=== PATIENT | female | born 1955 ===

== ENCOUNTER 2017-05-27 22:06 | Emergency (ER) | payer MEDICARE, MEDICAID ==
[2017-05-27 22:13] VITALS: TEMP 98
[2017-05-27] MEDS ORDERED: Sodium Chloride 0.9% 1,000 ML IV STA ×2 (22:24→23:57)
[2017-05-27 22:42] LABS: BASO % 0.5 % (0.0-2.0); EOS # 0.1 K/uL (0.0-0.7); EOS % 0.5 % (0.0-4.0); HEMOGLOBIN 12.1 g/dL (12.0-16.0); LYMPH # 1.1 K/uL (1.0-4.3); LYMPH % 11.2 % (20.0-40.0); MEAN CELL VOLUME 88.8 fl (81.0-99.0); MEAN CORPUSCULAR HEMOGLOBIN 28.3 pg (27.0-31.0); MEAN CORPUSCULAR HGB CONC 31.9 g/dL (33.0-37.0); MEAN PLATELET VOLUME 11.5 fl (7.2-11.7); MONO # 0.7 K/uL (0.0-0.8); MONO % 6.7 % (0.0-10.0); NEUT # 8.3 K/uL (1.8-7.0); NEUT % 81.1 % (50.0-75.0); NRBC % 0.1 % (0.0-0.0); RBC 4.29 Mil/uL (3.80-5.20); RED CELL DISTRIBUTION WIDTH 14.7 % (11.5-14.5); WHITE BLOOD COUNT 10.2 K/uL (4.8-10.8)
[2017-05-27 22:54] LABS: ALBUMIN 4.2 g/dL (3.5-5.0); ALT/SGPT 77 U/L (9-52); AST/SGOT 75 U/L (14-36); BLOOD UREA NITROGEN 24 mg/dl (7-17); CALCIUM 9.3 mg/dL (8.4-10.2); GFR AFRICAN-AMERICAN > 60; GFR NON-AFRICAN AMERICAN > 60; LIPASE 300 U/L (23-300)
[2017-05-27] MEDS ORDERED: Potassium CL 10mEq/100ml 100 ML IVPB ONE (22:56)
[2017-05-27 23:02] VITALS: RESP 18
[2017-05-27] MEDS ORDERED: Potassium CL 10 MEQ/50 ML 50 ML ONE (23:28)
--- NOTE | 2017-05-27 23:32 | ED PDOC ---
HPI:Nausea, Vomiting, Diarrhea Time Seen by Provider: 05/27/17 22:11 Chief Complaint (Nursing): GI Problem Chief Complaint (Provider): GI Problem History Per: Patient History/Exam Limitations: no limitations Onset/Duration Of Symptoms: Hrs (x4-5) Current Symptoms Are (Timing): Still Present Additional Complaint(s): 61 year old female with medical history of gastritis, who presents to the emergency department with a complaint of recurrent nausea and weakness associated with near-syncope, 2 episodes of non-bloody diarrhea and 3 episodes of vomiting ongoing since [id number] earlier today. Son reported that patient briefly loss consciousness mid-vomiting, however, patient stated she was fully aware during that episode. Denied any fever, chills, cough, shortness of breath or chest pain. Of note, patient was also given NS 200cc and Zofran 4mg IV by EMS on field. PMD: none provided Past Medical History Reviewed: Historical Data, Nursing Documentation, Vital Signs Vital Signs: Last Vital Signs Temp 98.0 F 05/27/17 22:09 Pulse 72 05/27/17 22:25 Resp 18 05/27/17 22:25 BP 142/97 H 05/27/17 22:25 Pulse Ox 98 05/27/17 22:25 - Medical History PMH: Gastritis - Surgical History Surgical History: No Surg Hx - Family History Family History: States: Unknown Family Hx - Social History Current smoker - smoking cessation education provided: No Alcohol: None Drugs: Denies - Home Medications Home Medications: Ambulatory Orders Medication Instructions Recorded Dicyclomine [Bentyl] 20 mg PO Q12 PRN #20 tab 05/28/17 Ondansetron ODT [Zofran ODT] 4 mg PO Q6 PRN #8 odt 05/28/17 - Allergies Allergies/Adverse Reactions: Allergies Allergy/AdvReac Type Severity Reaction Status Date / Time No Known Allergies Allergy Verified 05/27/17 22:09 Review of Systems ROS Statement: Except As Marked, All Systems Reviewed And Found Negative Constitutional: Positive for: Weakness. Negative for: Fever, Chills Cardiovascular: Negative for: Chest Pain Respiratory: Negative for: Cough, Shortness of Breath Gastrointestinal: Positive for: Nausea, Vomiting (x3), Diarrhea (nonbloody x2) Neurological: Positive for: Dizziness (near syncope) Physical Exam - Reviewed Nursing Documentation Reviewed: Yes Vital Signs Reviewed: Yes - Physical Exam Appears: Positive for: Non-toxic, Uncomfortable Head Exam: Positive for: ATRAUMATIC, NORMAL INSPECTION, NORMOCEPHALIC Skin: Positive for: Normal Color Eye Exam: Positive for: Normal appearance, EOMI, PERRL. Negative for: Nystagmus ENT: Positive for: Normal ENT Inspection Neck: Positive for: Normal, Painless ROM Cardiovascular/Chest: Positive for: Chest Non Tender, Tachycardia. Negative for : Regular Rate, Rhythm, Bradycardia Respiratory: Positive for: Normal Breath Sounds. Negative for: Decreased Breath Sounds, Respiratory Distress Gastrointestinal/Abdominal: Positive for: Normal Exam, Soft. Negative for: Tenderness Extremity: Positive for: Normal ROM (upper/lower) Neurologic/Psych: Positive for: Alert (x3), Oriented - Laboratory Results Result Diagrams: 05/27/17 22:30 05/27/17 22:30 - ECG O2 Sat by Pulse Oximetry: 98 (RA) Pulse Ox Interpretation: Normal Medical Decision Making Medical Decision Making: Initial Impression: vomiting; diarrhea; near-syncopal episode Initial Plan: * Alcohol serum * CMP * Drug screen, urine * Lipase * Troponin I * Urine dipstick * CBC * Bentyl 20mg PO * Potassium chloride 100ml IVPB * NS 1,000ml IV per 1,000mls/hr * Accucheck * Influenza A B Time: 2225 --Rapid flu: negative for influenza Time: 0134 --Upon provider reevaluation, patient is feeling better, medically stable and requires no further treatment in the ED at this time. Labs revealed no significant clinical abnormality. Patient will be discharged home with Rx for Bentyl 20mg and Zofran 4mg. Counseling was provided and all questions were answered regarding diagnosis. There is agreement to discharge plan. Return if symptoms persist or worsen. Clinical Impression: Gastroenteritis Scribe Attestation: Documented by Ivana Plaza, acting as a scribe for Hollis Camargo MD. Provider Scribe Attestation: All medical record entries made by the Scribe were at my direction and personally dictated by me. I have reviewed the chart and agree that the record accurately reflects my personal performance of the history, physical exam, medical decision making, and the department course for this patient. I have also personally directed, reviewed, and agree with the discharge instructions and disposition. Disposition - Clinical Impression Clinical Impression: Gastroenteritis - Disposition Disposition: Routine/Home Disposition Time: 01:00 Condition: STABLE Prescriptions: Dicyclomine [Bentyl] 20 mg PO Q12 PRN #20 tab PRN Reason: abdominal pain/diarrhea Ondansetron ODT [Zofran ODT] 4 mg PO Q6 PRN #8 odt PRN Reason: Nausea/Vomiting Instructions: Gastroenteritis (ED) Forms: [employer] (Indonesian) Print Language: MONTENEGRIN
[2017-05-27 23:45] VITALS: BP 112/58
[2017-05-28 00:46] LABS: BARBITURATES, UR NEGATIVE (NEGATIVE); BENZODIAZEPINES, UR NEGATIVE (NEGATIVE); OPIATES, UR NEGATIVE (NEGATIVE); PHENCYCLIDINE, UR NEGATIVE (NEGATIVE)
[2017-05-28] MEDS ORDERED: Potassium Chloride 20 mEq ER Tab PO ONE (01:13)
[2017-05-28] MEDS ORDERED: K-Lyte 25meq EF Tab PO ONE (01:36)
[2017-05-28 01:49] VITALS: PULSE 81
[2017-05-29 06:42] VITALS: O2SAT 98
== END 2017-05-28 02:00 | disposition home or self-care (01) ==
LOC: H.ER 22:06
DX: K52.9 Noninfective gastroenteritis and colitis, unspecified (principal)
CPT/HCPCS: 80053; 82948; 83690; 84484; 85025; 87804; 96361; 96374; 96375; 99285; G0480; J2405; J2765; J3480; J7040